=== PATIENT | female | born 1985 | race Caucasian/White ===

== ENCOUNTER 2022-02-14 17:12 | Emergency (ER) | payer OTHER ==
[~2022-02-14] VITALS: Ht 165.1 cm; Wt 65.9 kg
[~2022-02-14 17:12] MED LIST: INSULIN SQ; METF-446 PO; NPH,100I SQ; SITA25 PO
[2022-02-14] MEDS ORDERED: PB/HYOSCY/ATR/SCOP/LIDO/MAALOX 55 ML BOTTLE PO ONE (18:30)
[2022-02-14 18:39] LABS: EOSINOPHILS % (AUTO) 1.7 % (1.0-6.0); HEMATOCRIT 37.7 % (36-46); HEMOGLOBIN 12.8 g/dL (12.0-16.0); LYMPHOCYTES # (AUTO) 5.1 K/uL (1.0-4.8); LYMPHOCYTES % (AUTO) 39.8 % (22.0-44.0); MEAN CORPUSCULAR HEMOGLOBIN 27.5 pg (26.0-34.0); MEAN CORPUSCULAR HGB CONC 33.9 G/dL (31.0-37.0); MEAN CORPUSCULAR VOLUME 81 fL (80-100); MONOCYTES # (AUTO) 0.4 K/uL (0.1-1.0); MONOCYTES % (AUTO) 2.9 % (2.0-9.0); NEUTROPHILS % (AUTO) 54.6 % (40.0-70.0); PLATELET COUNT (AUTO) 396 K/uL (150-450); RED BLOOD CELL COUNT(AUTO) 4.65 MIL/uL (4.00-5.20)
[2022-02-14 19:06] LABS: ALANINE AMINOTRANSFERASE 18 U/L (12-78); ALBUMIN 2.9 g/dL (3.4-5.0); ALKALINE PHOSPHATASE 78 U/L (46-116); ASPARTATE AMINOTRANSFERASE 14 U/L (15-37); BILIRUBIN,TOTAL 0.3 mg/dL (0.1-1.0); CALCIUM, TOTAL 9.4 mg/dL (8.8-10.5); CARBON DIOXIDE 27 mmol/L (22-29); CREATININE 0.81 mg/dL (0.60-1.30); GLOMERULAR FILTR. RATE CALC > 60 mL/min (>60); GLUCOSE,RANDOM 279 mg/dL (70-110); HCG,QUANTITATIVE < 1 mIU/mL (0-6); LIPASE 144 U/L (73-393); TOTAL PROTEIN, SERUM 8.1 g/dL (6.4-8.2); UREA NITROGEN, BLOOD 14 mg/dL (7-18)
[2022-02-14 19:13] LABS: ANION GAP 11 mmol/L (8-16); CHLORIDE 98 mmol/L (98-107); POTASSIUM 4.1 mmol/L (3.5-5.1); SODIUM SERUM 136 mmol/L (136-145)
[2022-02-14 19:26] VITALS: BP 161/106
== END 2022-02-14 20:12 | disposition home or self-care (01) ==
LOC: EMS 17:15
DX: E11.65 Type 2 diabetes mellitus with hyperglycemia (principal); R10.13 Epigastric pain; I10 Essential (primary) hypertension; E78.00 Pure hypercholesterolemia, unspecified
CPT/HCPCS: 80053; 82962; 83690; 84484; 84702; 85025; 93005; 99284

== ENCOUNTER 2022-08-10 13:43 | Emergency (ER) | payer OTHER ==
[~2022-08-10] VITALS: Ht 165.1 cm; Wt 65.9 kg
[2022-08-10] MEDS ORDERED: SODIUM CHLORIDE 0.9% 1,000 ML IV ONE (14:30)
[2022-08-10 14:45] LABS: BASOPHILS % (AUTO) 0.2 % (0.0-2.0); EOSINOPHILS % (AUTO) 0.7 % (1.0-6.0); HEMOGLOBIN 13.7 g/dL (12.0-16.0); LYMPHOCYTES # (AUTO) 0.9 K/uL (1.0-4.8); MEAN CORPUSCULAR HEMOGLOBIN 26.8 pg (26.0-34.0); MEAN CORPUSCULAR HGB CONC 32.6 G/dL (31.0-37.0); MEAN CORPUSCULAR VOLUME 82 fL (80-100); MONOCYTES # (AUTO) 0.3 K/uL (0.1-1.0); MONOCYTES % (AUTO) 2.4 % (2.0-9.0); NEUTROPHILS # (AUTO) 11.7 K/uL (1.8-7.7); NEUTROPHILS % (AUTO) 89.7 % (40.0-70.0); PLATELET COUNT (AUTO) 349 K/uL (150-450); RED BLOOD CELL COUNT(AUTO) 5.12 MIL/uL (4.00-5.20); RED CELL DISTRIBUTION WIDTH 13.9 % (11.5-14.5)
[2022-08-10 14:53] LABS: ANION GAP 6 mmol/L (8-16); CALCIUM, TOTAL 8.7 mg/dL (8.8-10.5); CARBON DIOXIDE 26 mmol/L (22-29); CHLORIDE 100 mmol/L (98-107); CREATININE 1.06 mg/dL (0.60-1.30); GLOMERULAR FILTR. RATE CALC 59 mL/min (>60); GLUCOSE,RANDOM 289 mg/dL (70-110); SODIUM SERUM 132 mmol/L (136-145); UREA NITROGEN, BLOOD 25 mg/dL (7-18)
[2022-08-10 15:05] LABS: ALANINE AMINOTRANSFERASE 13 U/L (12-78); ALBUMIN 2.5 g/dL (3.4-5.0); ALKALINE PHOSPHATASE 64 U/L (46-116); ASPARTATE AMINOTRANSFERASE 16 U/L (15-37); BILIRUBIN,TOTAL 0.4 mg/dL (0.1-1.0); HCG,QUANTITATIVE < 1 mIU/mL (0-6); LIPASE 218 U/L (73-393); TOTAL PROTEIN, SERUM 7.2 g/dL (6.4-8.2)
[2022-08-10] MEDS ORDERED: KETOROLAC TROMETHAMINE 10 MG TABLET PO ONE (15:45)
[2022-08-10] MEDS ORDERED: METOCLOPRAMIDE HCL 5 MG/ML 2 ML VIAL IVP ONE (15:45)
[2022-08-10] MEDS ORDERED: PB/HYOSCY/ATR/SCOP/LIDO/MAALOX 55 ML BOTTLE PO ONE (15:45)
[2022-08-10 16:14] LABS: APPEARANCE,URINE HAZY (CLEAR); BILIRUBIN,URINE NEGATIVE (NEGATIVE); GLUCOSE, URINE (UA) >=1000 mg/dL (NEGATIVE); KETONES,URINE NEGATIVE (NEGATIVE); LEUKOCYTE ESTERASE ,URINE NEGATIVE (NEGATIVE); NITRATE,URINE NEGATIVE (NEGATIVE); OCCULT BLOOD,URINE MODERATE (NEGATIVE); PH,URINE 6.5 (5.0-8.0); PROTEIN,URINE 300-600,SEE CONFIRM mg/dL (NEGATIVE); SPECIFIC GRAVITIY, URINE 1.016 (1.003-1.030); UROBILINOGEN,URINE <=1.0 mg/dL (<=1.0)
[2022-08-10 16:26] LABS: BACTERIA,URINE Few /HPF (None Seen); SQUAMOUS EPITHELIAL CELL,UR Few /LPF (None Seen); SULFOSALICYLIC ACID,URINE 4+ (Negative); TRANSITIONAL EPI CELLS,URINE None Seen /LPF (None Seen); WBC,URINE 0-2 /HPF (0-5)
[2022-08-10 17:45] VITALS: BP 160/83
[2022-08-10] MEDS ORDERED: ONDA-104 PO (18:29)
[2022-08-10] MEDS ORDERED: OMEP20CA13 PO (18:29)
== END 2022-08-10 18:40 | disposition home or self-care (01) ==
LOC: EMS 13:47
DX: R10.13 Epigastric pain (principal); E11.9 Type 2 diabetes mellitus without complications; I10 Essential (primary) hypertension; E78.00 Pure hypercholesterolemia, unspecified; K76.0 Fatty (change of) liver, not elsewhere classified; Z98.51 Tubal ligation status; Z98.890 Other specified postprocedural states
CPT/HCPCS: 99285; 74176; 96374; 96361; 80053; 81001; 82962; 83690; 84702; 85025; 36415; J2765; 81002

== ENCOUNTER 2024-10-06 06:28 | Emergency (ER) | payer OTHER ==
[~2024-10-06] VITALS: Ht 157.5 cm; Wt 65.9 kg
[~2024-10-06 06:28] MED LIST changes: -INSULIN SQ; -METF-446 PO; -NPH,100I SQ; +OMEP20CA13 PO; +ONDA-104 PO; -SITA25 PO
[2024-10-06 06:29] VITALS: TEMP 98.7
[2024-10-06] MEDS: OxyCODONE HCL/ACETAMINOPHEN 5-325 MG TABLET PO ONE (06:46)
[2024-10-06] MEDS: CloNIDine HCL 0.1 MG TABLET PO ONE (06:47)
[2024-10-06] MEDS: LISINOPRIL 10 MG TABLET PO ONE (06:47)
[2024-10-06] MEDS: DORZOLAMIDE/TIMOLOL 2-0.5% [22.3-6.8MG/ML] 10 ML OPHTHALMIC SOLUTION OD ONE (08:19)
[2024-10-06] MEDS: AcetaZOLAMIDE 250 MG TABLET PO ONE (08:19)
[2024-10-06 08:37] VITALS: BP 109/66; PULSE 84; RESP 18; O2SAT 99
== END 2024-10-06 08:48 | disposition home or self-care (01) ==
LOC: EMS 06:36
DX: H40.211 Acute angle-closure glaucoma, right eye (principal); E11.9 Type 2 diabetes mellitus without complications; I10 Essential (primary) hypertension; E78.00 Pure hypercholesterolemia, unspecified; K76.0 Fatty (change of) liver, not elsewhere classified; Z98.51 Tubal ligation status; Z79.899 Other long term (current) drug therapy
CPT/HCPCS: 82962; 99284; Z7502; Z7610

== ENCOUNTER 2025-03-18 18:28 | Inpatient (IN) | payer OTHER ==
[~2025-03-18] VITALS: Ht 157.5 cm; Wt 68.7 kg
[~2025-03-18 18:28] MED LIST changes: +AMLO-258 PO; +ASPI-1450 PO; +ATOR40TA71 PO; +ATRO2DRO7 OD; +FOLI0.8T54 PO; +LABE200T56 PO; -OMEP20CA13 PO; -ONDA-104 PO; +PRED5DRO25 OD; +TRAV2.5D7 OD
[2025-03-18] MEDS: SODIUM BICARBONATE [ADULT] 8.4% 50 MEQ/50 ML SYRINGE IVP ONE ×2 (18:56)
[2025-03-18] MEDS: ATROPINE SULFATE 1 MG/ML VIAL IVP ONE (18:57)
[2025-03-18] MEDS: CALCIUM CHLORIDE 100 MG/ML 10 ML VIAL IVP ONE (18:57)
[2025-03-18 18:58] LABS: PLATELET COUNT (AUTO) 298 K/uL (150-450); RED BLOOD CELL COUNT(AUTO) 3.38 MIL/uL (4.00-5.20); RED CELL DISTRIBUTION WIDTH 13.4 % (11.5-14.5); WHITE BLOOD COUNT (AUTO) 16.6 K/uL (4.5-11.0)
[2025-03-18] MEDS: SODIUM CHLORIDE 0.9% 1,000 ML IV ONE (19:00)
[2025-03-18 19:04] LABS: CREATININE 9.46 mg/dL (0.60-1.30); GLOMERULAR FILTR. RATE CALC 5 mL/min (>60); GLUCOSE,RANDOM 176 mg/dL (70-110); SODIUM SERUM 131 mmol/L (136-145); UREA NITROGEN, BLOOD 94 mg/dL (7-18)
[2025-03-18] MEDS: NITROGLYCERIN 2% (1 GM=INCH) OINTMENT PACKET TP ONE ×2 (19:05→19:12)
[2025-03-18 19:09] LABS: ASPARTATE AMINOTRANSFERASE 34.0 U/L (15-37); CREATINE KINASE, TOTAL ONLY 600.0 U/L (26-192); TOTAL PROTEIN, SERUM 6.2 g/dL (6.4-8.2)
[2025-03-18 19:14] LABS: CALCIUM, TOTAL 15.3 mg/dL (8.8-10.5)
[2025-03-18] MEDS ORDERED: CALCIUM CHLORIDE 100 MG/ML 10 ML SYRINGE IVP ONE (19:15)
[2025-03-18] MEDS ORDERED: ATROPINE SULFATE 0.1 MG/ML 10 ML SYRINGE IVP ONE (19:15)
[2025-03-18] MEDS: DEXTROSE 50%-WATER 25 GM/50 ML SYRINGE IVP ONE (19:19)
[2025-03-18] MEDS: INSULIN REGULAR, HUMAN 100 UNITS/ML IVP ONE (19:20)
[2025-03-18] MEDS: SODIUM ZIRCONIUM CYCLOSILICATE 10 GM POWDER PACKET PO ONE (19:20)
[2025-03-18 19:21] LABS: TROPONIN I-HIGH SENSITIVITY 245 ng/L (<51)
[2025-03-18 19:36] LABS: GLUCOMETER DEV NAME(LOC) ERT.7; GLUCOSE,POINT OF CARE 153 MG/DL (70-110)
[2025-03-18] MEDS: FUROSEMIDE 20 MG/2 ML VIAL IVP ONE (19:58)
[2025-03-18 19:59] LABS: ABG BASE EXCESS -6.6 mmol/L (-2.0-3.0); ABG CARBOXYHEMOGLOBIN 0.3 % (0.5-1.5); ABG HCO3 19.7 mmol/L (21.0-28.0); ABG METHEMOGLOBIN 1.0 % (0.0-1.5); ABG OXYGEN CONTENT 12.9 mL/dL (15.0-23.0); ABG OXYGEN SATURATION 90.7 % (94.0-98.0); ABG OXYHEMOGLOBIN 89.5 % (94.0-98.0); ABG PCO2 27 mmHg (32.0-45.0); ABG PH 7.431 (7.350-7.450); ABG TOTAL HEMOGLOBIN 10.2 G/dL (12.0-16.0); FRACTIONATED INSPIRED OXYGEN 21.0 % (21-100.0); PO2, ARTERIAL BG 56.8 mmHg (83.0-108.0); SOURCE, BLOOD GAS ARTERIAL; TEMPERATURE, FAHRENHEIT, BG 97.0 FAHREN (96.0-98.6)
[2025-03-18 20:00] LABS: ABG A-A DIFF O2 60.9 mmHg (10-20.0); ALLEN TEST, BLOOD GAS Positive; O2 DEVICE,BLOOD GAS ROOM AIR (ROOM AIR); SITE, BLOOD GAS RT RADIAL
[2025-03-18] MEDS: METOCLOPRAMIDE HCL 5 MG/ML 2 ML VIAL IVP ONE (20:14)
[2025-03-18 20:26] LABS: APPEARANCE,URINE CLEAR (CLEAR); GLUCOSE, URINE (UA) 300-500 mg/dL (NEGATIVE); LEUKOCYTE ESTERASE ,URINE NEGATIVE (NEGATIVE); NITRATE,URINE NEGATIVE (NEGATIVE); OCCULT BLOOD,URINE SMALL (NEGATIVE); SPECIFIC GRAVITIY, URINE 1.014 (1.003-1.030)
[2025-03-18 20:45] LABS: SULFOSALICYLIC ACID,URINE 4+ (Negative)
[2025-03-18 20:47] LABS: SQUAMOUS EPITHELIAL CELL,UR Rare /LPF (None Seen)
[2025-03-18 20:49] LABS: HYALINE CASTS, URINE 0-2 /LPF (None Seen)
[2025-03-18] MEDS: ATORVASTATIN CALCIUM 40 MG TABLET PO SCH (23:09)
[2025-03-19] VITALS (7 sets, daily range): BP systolic 134–157; BP diastolic 62–81; PULSE 91–101; RESP 12–25; TEMP 97–97.5; O2SAT 92–100
[2025-03-19] MEDS: ETHYL ALCOHOL 62% ANTISEPTIC NASAL SANITIZER 0.6 ML AMPUL NASAL SCH (00:31)
[2025-03-19 01:17] LABS: TROPONIN I-HIGH SENSITIVITY 330 ng/L (<51)
[2025-03-19 01:51] LABS: GLUCOMETER DEV NAME(LOC) ICU.S6; GLUCOSE,POINT OF CARE 123 MG/DL (70-110)
[2025-03-19 06:12] LABS: PLATELET COUNT (AUTO) 307 K/uL (150-450); RED BLOOD CELL COUNT(AUTO) 3.20 MIL/uL (4.00-5.20); RED CELL DISTRIBUTION WIDTH 13.7 % (11.5-14.5); WHITE BLOOD COUNT (AUTO) 15.2 K/uL (4.5-11.0)
[2025-03-19 06:18] LABS: CALCIUM, TOTAL 8.3 mg/dL (8.8-10.5); CREATININE 9.08 mg/dL (0.60-1.30); GLOMERULAR FILTR. RATE CALC 5.0 mL/min (>60); GLUCOSE,RANDOM 150.0 mg/dL (70-110); SODIUM SERUM 134.0 mmol/L (136-145); UREA NITROGEN, BLOOD 93.0 mg/dL (7-18)
[2025-03-19 06:23] LABS: PHOSPHORUS 8.2 mg/dL (2.5-4.9)
[2025-03-19] MEDS ORDERED: DEXTROSE 50%-WATER 25 GM/50 ML SYRINGE IVP PRN (07:30)
[2025-03-19] MEDS ORDERED: ACETAMINOPHEN 325 MG TABLET PO PRN (08:30)
[2025-03-19] MEDS ORDERED: BISACODYL 10 MG RECTAL RECTAL SUPPOSITORY PR PRN (08:30)
[2025-03-19] MEDS ORDERED: IPRATROPIUM BROMIDE 0.5 MG/2.5 ML NEB SOLUTION NEB PRN (08:30)
[2025-03-19] MEDS ORDERED: ALBUTEROL SULFATE 2.5 MG/0.5 ML NEB SOLUTION NEB PRN (08:30)
[2025-03-19] MEDS ORDERED: MAGNESIUM HYDROXIDE SUSPENSION 30 ML UDCUP PO PRN (08:30)
[2025-03-19] MEDS ORDERED: HYDROCODONE/ACETAMINOPHEN 5-325 MG TABLET PO PRN (08:30)
[2025-03-19] MEDS ORDERED: ZOLPIDEM TARTRATE 5 MG TABLET PO PRN (08:30)
[2025-03-19] MEDS: FOLIC ACID/VIT B COMPLEX AND C TABLET PO SCH (08:56)
[2025-03-19] MEDS: PrednisoLONE ACETATE 1% 5 ML OPHTHALMIC SUSPENSION OD SCH (08:57)
[2025-03-19] MEDS: ASPIRIN 81 MG CHEWABLE TABLET PO SCH (08:57)
[2025-03-19] MEDS: TRAVOPROST-Z 0.004% 2.5 ML OPHTHALMIC SOLUTION OD SCH (08:57)
[2025-03-19] MEDS: ATROPINE SULFATE 1% 5 ML OPHTHALMIC SOLUTION OD SCH (08:57)
[2025-03-19] MEDS ORDERED: ETHYL ALCOHOL 62% ANTISEPTIC NASAL SANITIZER 0.6 ML AMPUL NASAL SCH (09:00)
[2025-03-19] MEDS: PANTOPRAZOLE SODIUM 40 MG DR TABLET PO SCH (09:05)
[2025-03-19] MEDS: INSULIN LISPRO 100 UNITS/ML SQ PRN (09:27)
[2025-03-19 09:36] LABS: GLUCOMETER DEV NAME(LOC) ICU.S6; GLUCOSE,POINT OF CARE 147 MG/DL (70-110)
[2025-03-19] MEDS: CALCIUM ACETATE 667 MG CAPSULE PO SCH (11:53)
[2025-03-19] MEDS: ONDANSETRON HCL 4 MG/2 ML VIAL IVP PRN (12:15)
[2025-03-19] MEDS: GENTAMICIN SULFATE 0.3% OPHTHALMIC SOLUTION 5 ML TP SCH (12:16)
[2025-03-19 13:21] LABS: GLUCOMETER DEV NAME(LOC) ICU.S6; GLUCOSE,POINT OF CARE 144 MG/DL (70-110)
[2025-03-19] MEDS: EPOETIN ALFA 10,000 UNITS/ML VIAL SQ SCH (14:05)
[2025-03-19] MEDS: HEPARIN SODIUM,PORCINE 5,000 UNITS/ML VIAL SQ SCH (15:32)
[2025-03-19 18:10] LABS: GLUCOMETER DEV NAME(LOC) ICU.S6; GLUCOSE,POINT OF CARE 130 MG/DL (70-110)
[2025-03-19] MEDS: NIFEdipine 60 MG ER TABLET PO SCH (20:11)
[2025-03-19 21:11] LABS: SPECIMENTYPE,BODY FLUID PERITV
[2025-03-19 22:25] LABS: APPEARANCE,SPUN,BODY FLUID CLEAR (CLEAR); APPEARANCE,UNSPUN,BODY FLUID CLEAR (CLEAR); COLOR,BODY FLUID COLORLESS (LT YELLOW)
[2025-03-19 22:26] LABS: TOTAL VOLUME,BODY FLUID 29 mL
[2025-03-19 22:27] LABS: BODY FLUID RBC 1.0 /cu. mm.; WBC, BODY FLUID 1 /cu. mm.
[2025-03-19 22:42] LABS: BASOPHILS,BODY FLUID 0 %; EOSINOPHILS,BF (ANAL) 0 %; LYMPHOCYTES,BODY FLUID 20 %; MONOCYTES,BODY FLUID 40 %; NEUTROPHILS,BODY FLUID 40 %
[2025-03-20] VITALS (8 sets, daily range): BP systolic 119–159; BP diastolic 68–82; PULSE 90–99; RESP 14–27; TEMP 97.3–98.2; O2SAT 92–100
[2025-03-20 05:20] LABS: PLATELET COUNT (AUTO) 304 K/uL (150-450); RED BLOOD CELL COUNT(AUTO) 2.86 MIL/uL (4.00-5.20); RED CELL DISTRIBUTION WIDTH 13.9 % (11.5-14.5); WHITE BLOOD COUNT (AUTO) 12.4 K/uL (4.5-11.0)
[2025-03-20 05:31] LABS: CALCIUM, TOTAL 8.0 mg/dL (8.8-10.5); CREATININE 8.09 mg/dL (0.60-1.30); GLOMERULAR FILTR. RATE CALC 6.0 mL/min (>60); GLUCOSE,RANDOM 167.0 mg/dL (70-110); SODIUM SERUM 133.0 mmol/L (136-145); UREA NITROGEN, BLOOD 72.0 mg/dL (7-18)
[2025-03-20 05:41] LABS: GLUCOMETER DEV NAME(LOC) ICUN.5; GLUCOSE,POINT OF CARE 141 MG/DL (70-110)
[2025-03-20 19:01] LABS: GLUCOMETER DEV NAME(LOC) ICU.S6; GLUCOSE,POINT OF CARE 106 MG/DL (70-110)
[2025-03-20] MEDS: MORPHINE SULFATE 2 MG/ML SYRINGE IVP PRN (20:53)
[2025-03-21 00:17] VITALS: BP 132/71; PULSE 99; RESP 19; TEMP 98.2; O2SAT 94
[2025-03-21 04:14] VITALS: BP 128/69; PULSE 92; RESP 19; TEMP 98.2; O2SAT 93
[2025-03-21 08:00] VITALS: BP 145/69; PULSE 96; RESP 18; TEMP 98.6; O2SAT 96
[2025-03-21 10:27] LABS: GLUCOMETER DEV NAME(LOC) 5N.1D; GLUCOSE,POINT OF CARE 117 MG/DL (70-110)
[2025-03-21 10:27] LABS: GLUCOMETER DEV NAME(LOC) 5N.1D; GLUCOSE,POINT OF CARE 114 MG/DL (70-110)
[2025-03-21 10:27] LABS: GLUCOMETER DEV NAME(LOC) 5S.2D; GLUCOSE,POINT OF CARE 88 MG/DL (70-110)
[2025-03-21 11:57] VITALS: BP 139/67; PULSE 90; RESP 19; TEMP 98.4; O2SAT 99
[2025-03-21 14:31] LABS: GLUCOMETER DEV NAME(LOC) 5S.2D; GLUCOSE,POINT OF CARE 85 MG/DL (70-110)
== END 2025-03-21 14:50 | disposition home or self-care (01) | DRG 425 ==
LOC: EMS 18:29 → EDH 22:55 → ICU 23:50 → 5S 03-20 15:00
PROVIDERS: ADMIT Hospitalist; ATTEND Hospitalist
PROC: 3E1M39Z Irrigation of Peritoneal Cavity using Dialysate, Percutaneous Approach (ICD-10-PCS; principal; 2025-03-19)
PROC: 3E1M39Z Irrigation of Peritoneal Cavity using Dialysate, Percutaneous Approach (ICD-10-PCS; 2025-03-20)
DX: E87.5 Hyperkalemia (principal); I44.2 Atrioventricular block, complete; I12.0 Hypertensive chronic kidney disease with stage 5 chronic kidney disease or end stage renal disease; D63.1 Anemia in chronic kidney disease; E11.319 Type 2 diabetes mellitus with unspecified diabetic retinopathy without macular edema; E83.39 Other disorders of phosphorus metabolism; N18.6 End stage renal disease; E11.22 Type 2 diabetes mellitus with diabetic chronic kidney disease; D72.829 Elevated white blood cell count, unspecified; E78.00 Pure hypercholesterolemia, unspecified; E11.40 Type 2 diabetes mellitus with diabetic neuropathy, unspecified; R79.89 Other specified abnormal findings of blood chemistry; R56.9 Unspecified convulsions; Z99.2 Dependence on renal dialysis; Z79.899 Other long term (current) drug therapy; Z79.82 Long term (current) use of aspirin; Z79.4 Long term (current) use of insulin
CPT/HCPCS: 71045; 80048; 80076; 81001; 81002; 82550; 82805; 82962; 83735; 83880; 84100; 84132; 84484; 84703; 85025; 85610; 85730; 87075; 87081; 87205; 89051; 90945; 93005; 93306; 97162; 99285; G0378; J0360; J0461; J0885; J1644; J1815; J1940; J2270; J2405; J2765; J3490; J7050; 36415-L1; 36415-TC; 87070

== ENCOUNTER 2025-03-24 21:01 | Inpatient (IN) | payer OTHER ==
[~2025-03-24] VITALS: Ht 165.1 cm; Wt 63.5 kg
[2025-03-24 21:28] LABS: PLATELET COUNT (AUTO) 409 K/uL (150-450); RED BLOOD CELL COUNT(AUTO) 3.25 MIL/uL (4.00-5.20); RED CELL DISTRIBUTION WIDTH 13.8 % (11.5-14.5); WHITE BLOOD COUNT (AUTO) 12.3 K/uL (4.5-11.0)
[2025-03-24] MEDS: DEXTROSE 50%-WATER 25 GM/50 ML SYRINGE IVP ONE (21:37)
[2025-03-24 21:38] LABS: ASPARTATE AMINOTRANSFERASE 36.0 U/L (15-37); TOTAL PROTEIN, SERUM 6.2 g/dL (6.4-8.2)
[2025-03-24] MEDS: INSULIN REGULAR, HUMAN 100 UNITS/ML IVP ONE (21:39)
[2025-03-24 21:46] LABS: RBC MORPHOLOGY COMMENT NORMAL RBC MORPH
[2025-03-24 21:48] LABS: CALCIUM, TOTAL 8.5 mg/dL (8.8-10.5); CREATININE 8.92 mg/dL (0.60-1.30); GLOMERULAR FILTR. RATE CALC 5 mL/min (>60); GLUCOSE,RANDOM 120 mg/dL (70-110); SODIUM SERUM 127 mmol/L (136-145); UREA NITROGEN, BLOOD 72 mg/dL (7-18)
[2025-03-24] MEDS: CHLORHEXIDINE GLUCONATE 2% TOWELETTE [2'S/6'S] TP SCH (22:00)
[2025-03-24 22:11] LABS: TROPONIN I-HIGH SENSITIVITY 538 ng/L (<51)
[2025-03-24] MEDS: ONDANSETRON HCL 4 MG/2 ML VIAL IVP ONE (22:17)
[2025-03-24 22:20] LABS: GLUCOMETER DEV NAME(LOC) ERT.7; GLUCOSE,POINT OF CARE 151 MG/DL (70-110)
[2025-03-24] MEDS: SODIUM ZIRCONIUM CYCLOSILICATE 10 GM POWDER PACKET PO ONE (22:48)
[2025-03-24] MEDS ORDERED: 0.9% SODIUM CHLORIDE 15 ML NEB SOLUTION NEB ONE (22:50)
[2025-03-24 22:56] LABS: APPEARANCE,URINE CLEAR (CLEAR); GLUCOSE, URINE (UA) 300-500 mg/dL (NEGATIVE); LEUKOCYTE ESTERASE ,URINE NEGATIVE (NEGATIVE); NITRATE,URINE NEGATIVE (NEGATIVE); OCCULT BLOOD,URINE SMALL (NEGATIVE); SPECIFIC GRAVITIY, URINE 1.013 (1.003-1.030)
[2025-03-24] MEDS: ALBUTEROL SULFATE 2.5 MG/0.5 ML 5 ML NEB SOLUTION NEB ONE (22:56)
[2025-03-24 23:00] VITALS: PULSE 116; RESP 20; O2SAT 95
[2025-03-24 23:09] LABS: SULFOSALICYLIC ACID,URINE 4+ (Negative)
[2025-03-24 23:10] LABS: SQUAMOUS EPITHELIAL CELL,UR Few /LPF (None Seen)
[2025-03-24] MEDS ORDERED: DEXTROSE 50%-WATER 25 GM/50 ML SYRINGE IVP PRN (23:30)
[2025-03-25] VITALS (9 sets, daily range): BP systolic 140–186; BP diastolic 65–98; PULSE 86–122; RESP 12–20; TEMP 97.8–98.7; O2SAT 94–100
[2025-03-25 00:08] LABS: TROPONIN I-HIGH SENSITIVITY 594 ng/L (<51)
[2025-03-25] MEDS: HEPARIN SODIUM,PORCINE 5,000 UNITS/ML VIAL SQ SCH (00:17)
[2025-03-25] MEDS: ACETAMINOPHEN 325 MG TABLET PO PRN (01:50)
[2025-03-25 06:21] LABS: GLUCOMETER DEV NAME(LOC) ERT.7; GLUCOSE,POINT OF CARE 100 MG/DL (70-110)
[2025-03-25] MEDS: ETHYL ALCOHOL 62% ANTISEPTIC NASAL SANITIZER 0.6 ML AMPUL NASAL SCH (08:27)
[2025-03-25] MEDS: FAMOTIDINE 20 MG TABLET PO SCH (08:28)
[2025-03-25] MEDS: DOCUSATE SODIUM 100 MG CAPSULE PO SCH (08:28)
[2025-03-25 11:35] LABS: GLUCOMETER DEV NAME(LOC) ICU.S6; GLUCOSE,POINT OF CARE 88 MG/DL (70-110)
[2025-03-25 16:30] LABS: GLUCOMETER DEV NAME(LOC) ICU.S6; GLUCOSE,POINT OF CARE 99 MG/DL (70-110)
[2025-03-25] MEDS ORDERED: [UNRECOGNIZED DRUG - OTHER] IV ONE (16:57)
[2025-03-25] MEDS ORDERED: DOPAMINE IV ONE (16:57)
[2025-03-25 17:40] LABS: PLATELET COUNT (AUTO) 387 K/uL (150-450); RED BLOOD CELL COUNT(AUTO) 3.22 MIL/uL (4.00-5.20); RED CELL DISTRIBUTION WIDTH 13.5 % (11.5-14.5); WHITE BLOOD COUNT (AUTO) 12.1 K/uL (4.5-11.0)
[2025-03-25 17:54] LABS: CALCIUM, TOTAL 7.6 mg/dL (8.8-10.5); CREATININE 9.79 mg/dL (0.60-1.30); GLOMERULAR FILTR. RATE CALC 4.0 mL/min (>60); GLUCOSE,RANDOM 110.0 mg/dL (70-110); SODIUM SERUM 126.0 mmol/L (136-145); UREA NITROGEN, BLOOD 79.0 mg/dL (7-18)
[2025-03-25 17:59] LABS: ASPARTATE AMINOTRANSFERASE 25.0 U/L (15-37); PHOSPHORUS 7.4 mg/dL (2.5-4.9); TOTAL PROTEIN, SERUM 5.7 g/dL (6.4-8.2)
[2025-03-25 18:06] LABS: TROPONIN I-HIGH SENSITIVITY 484 ng/L (<51)
[2025-03-25] MEDS ORDERED: 0.9% SODIUM CHLORIDE 5 ML NEB SOLUTION NEB ONE (20:09)
[2025-03-25] MEDS: ALBUTEROL SULFATE 2.5 MG/0.5 ML 5 ML NEB SOLUTION NEB ONE (20:17)
[2025-03-25] MEDS: DEXTROSE 50%-WATER 25 GM/50 ML SYRINGE IVP ONE (20:27)
[2025-03-25] MEDS: SODIUM ZIRCONIUM CYCLOSILICATE 10 GM POWDER PACKET PO ONE (20:27)
[2025-03-25] MEDS: CALCIUM GLUCONATE 100 MG/ML 10 ML IVP ONE (20:29)
[2025-03-25] MEDS: INSULIN REGULAR, HUMAN 100 UNITS/ML IVP ONE (20:29)
[2025-03-25 20:40] LABS: GLUCOMETER DEV NAME(LOC) ICU.S6; GLUCOSE,POINT OF CARE 134 MG/DL (70-110)
[2025-03-25 23:09] LABS: CALCIUM, TOTAL 7.9 mg/dL (8.8-10.5); CREATININE 9.76 mg/dL (0.60-1.30); GLOMERULAR FILTR. RATE CALC 5.0 mL/min (>60); GLUCOSE,RANDOM 221.0 mg/dL (70-110); SODIUM SERUM 126.0 mmol/L (136-145); UREA NITROGEN, BLOOD 76.0 mg/dL (7-18)
[2025-03-26] VITALS (7 sets, daily range): BP systolic 117–165; BP diastolic 59–88; PULSE 73–107; RESP 12–21; TEMP 97.6–99.3; O2SAT 95–100
[2025-03-26 05:52] LABS: PLATELET COUNT (AUTO) 339 K/uL (150-450); RED BLOOD CELL COUNT(AUTO) 2.76 MIL/uL (4.00-5.20); RED CELL DISTRIBUTION WIDTH 13.7 % (11.5-14.5); WHITE BLOOD COUNT (AUTO) 11.2 K/uL (4.5-11.0)
[2025-03-26 06:02] LABS: CALCIUM, TOTAL 7.7 mg/dL (8.8-10.5); CREATININE 9.18 mg/dL (0.60-1.30); GLOMERULAR FILTR. RATE CALC 5.0 mL/min (>60); GLUCOSE,RANDOM 105.0 mg/dL (70-110); SODIUM SERUM 128.0 mmol/L (136-145); UREA NITROGEN, BLOOD 70.0 mg/dL (7-18)
[2025-03-26 06:06] LABS: PHOSPHORUS 6.9 mg/dL (2.5-4.9)
[2025-03-26 06:35] LABS: GLUCOMETER DEV NAME(LOC) ICUN.6; GLUCOSE,POINT OF CARE 133 MG/DL (70-110)
[2025-03-26] MEDS: SODIUM ZIRCONIUM CYCLOSILICATE 10 GM POWDER PACKET PO SCH (13:18)
[2025-03-26] MEDS: INSULIN LISPRO 100 UNITS/ML SQ PRN (17:12)
[2025-03-26 17:21] LABS: GLUCOMETER DEV NAME(LOC) ICUN.6; GLUCOSE,POINT OF CARE 147 MG/DL (70-110)
[2025-03-26 17:21] LABS: GLUCOMETER DEV NAME(LOC) ICU.S6; GLUCOSE,POINT OF CARE 120 MG/DL (70-110)
[2025-03-26 21:51] LABS: GLUCOMETER DEV NAME(LOC) ICUN.6; GLUCOSE,POINT OF CARE 146 MG/DL (70-110)
[2025-03-27] VITALS: BP 163/87; PULSE 98; RESP 13; TEMP 98.9; O2SAT 98
[2025-03-27 04:00] VITALS: BP 126/68; PULSE 93; RESP 13; TEMP 97.9; O2SAT 97
[2025-03-27 05:51] LABS: PLATELET COUNT (AUTO) 323 K/uL (150-450); RED BLOOD CELL COUNT(AUTO) 2.87 MIL/uL (4.00-5.20); RED CELL DISTRIBUTION WIDTH 13.8 % (11.5-14.5); WHITE BLOOD COUNT (AUTO) 10.5 K/uL (4.5-11.0)
[2025-03-27 05:52] LABS: CALCIUM, TOTAL 7.4 mg/dL (8.8-10.5); CREATININE 8.47 mg/dL (0.60-1.30); GLOMERULAR FILTR. RATE CALC 5.0 mL/min (>60); GLUCOSE,RANDOM 87.0 mg/dL (70-110); SODIUM SERUM 127.0 mmol/L (136-145); UREA NITROGEN, BLOOD 63.0 mg/dL (7-18)
[2025-03-27 06:36] LABS: GLUCOMETER DEV NAME(LOC) ICUN.6; GLUCOSE,POINT OF CARE 94 MG/DL (70-110)
[2025-03-27 08:00] VITALS: BP 150/87; PULSE 91; RESP 12; TEMP 98.2; O2SAT 95
[2025-03-27] MEDS ORDERED: SODI10PO3 PO (09:42)
[2025-03-27] MEDS ORDERED: HYDR50TA37 PO (09:42)
[2025-03-27] MEDS: ONDANSETRON HCL 4 MG/2 ML VIAL IVP PRN (10:54)
[2025-03-27 10:56] LABS: GLUCOMETER DEV NAME(LOC) ICUN.6; GLUCOSE,POINT OF CARE 92 MG/DL (70-110)
[2025-03-27] MEDS ORDERED: EPOETIN ALFA 10,000 UNITS/ML VIAL SQ ONE (11:45)
[2025-03-27 11:56] LABS: GLUCOMETER DEV NAME(LOC) ICU.S6; GLUCOSE,POINT OF CARE 88 MG/DL (70-110)
[2025-03-27] MEDS: EPOETIN ALFA 10,000 UNITS/ML VIAL SQ ONE (12:06)
== END 2025-03-27 12:15 | disposition home or self-care (01) | DRG 201 ==
LOC: EMS 21:01 → EDH 21:45 → ICU 03-25 06:50
PROVIDERS: ADMIT Internal Medicine; ATTEND Internal Medicine
PROC: 3E1M39Z Irrigation of Peritoneal Cavity using Dialysate, Percutaneous Approach (ICD-10-PCS; principal; 2025-03-25)
PROC: 3E1M39Z Irrigation of Peritoneal Cavity using Dialysate, Percutaneous Approach (ICD-10-PCS; 2025-03-26)
DX: I44.1 Atrioventricular block, second degree (principal); J96.01 Acute respiratory failure with hypoxia; I12.0 Hypertensive chronic kidney disease with stage 5 chronic kidney disease or end stage renal disease; E44.0 Moderate protein-calorie malnutrition; E87.1 Hypo-osmolality and hyponatremia; D63.1 Anemia in chronic kidney disease; N18.6 End stage renal disease; E11.22 Type 2 diabetes mellitus with diabetic chronic kidney disease; E87.5 Hyperkalemia; I16.1 Hypertensive emergency; E78.00 Pure hypercholesterolemia, unspecified; Z83.3 Family history of diabetes mellitus; Z99.2 Dependence on renal dialysis; Z79.82 Long term (current) use of aspirin; Z79.899 Other long term (current) drug therapy; Z68.23 Body mass index [BMI] 23.0-23.9, adult
CPT/HCPCS: 70450; 71045; 80048; 80053; 80076; 81001; 81002; 82962; 83735; 83880; 84100; 84132; 84484; 84703; 85025; 87081; 90945; 93005; 94640; 94644; 96374; 96375; 99291; G0378; J0360; J0610; J0885; J1265; J1644; J1815; J2405; 36415-L1; 36415-TC

== ENCOUNTER 2025-03-29 23:02 | Emergency (ER) | payer OTHER ==
[~2025-03-29] VITALS: Ht 165.1 cm; Wt 68.2 kg
[~2025-03-29 23:02] MED LIST changes: +HYDR50TA37 PO; -LABE200T56 PO; +SODI10PO3 PO
[2025-03-30 00:20] VITALS: TEMP 97.3
[2025-03-30] MEDS ORDERED: TRANEXAMIC ACID 1,000 MG/10 ML VIAL TP ONE (00:45)
[2025-03-30 00:46] LABS: PLATELET COUNT (AUTO) 332 K/uL (150-450); RED BLOOD CELL COUNT(AUTO) 2.87 MIL/uL (4.00-5.20); RED CELL DISTRIBUTION WIDTH 14.0 % (11.5-14.5); WHITE BLOOD COUNT (AUTO) 11.4 K/uL (4.5-11.0)
[2025-03-30 00:51] LABS: CALCIUM, TOTAL 6.8 mg/dL (8.8-10.5); CREATININE 9.12 mg/dL (0.60-1.30); GLOMERULAR FILTR. RATE CALC 5 mL/min (>60); GLUCOSE,RANDOM 110 mg/dL (70-110); SODIUM SERUM 128 mmol/L (136-145); UREA NITROGEN, BLOOD 69 mg/dL (7-18)
[2025-03-30 01:02] LABS: TROPONIN I-HIGH SENSITIVITY 245 ng/L (<51)
[2025-03-30 01:45] VITALS: BP 175/78; PULSE 78; RESP 16; O2SAT 97
== END 2025-03-30 02:55 | disposition home or self-care (01) ==
LOC: EMS 23:41
DX: R04.0 Epistaxis (principal); I12.0 Hypertensive chronic kidney disease with stage 5 chronic kidney disease or end stage renal disease; E11.22 Type 2 diabetes mellitus with diabetic chronic kidney disease; N18.6 End stage renal disease; R06.02 Shortness of breath; E78.00 Pure hypercholesterolemia, unspecified; K76.0 Fatty (change of) liver, not elsewhere classified; Z79.82 Long term (current) use of aspirin; Z98.51 Tubal ligation status; Z79.899 Other long term (current) drug therapy
CPT/HCPCS: 80048; 83880; 84484; 85025; 93005; 99284

== ENCOUNTER 2025-04-18 22:31 | Inpatient (IN) | payer OTHER ==
[~2025-04-18] VITALS: Ht 165.1 cm; Wt 69.5 kg
[2025-04-18 23:00] LABS: PLATELET COUNT (AUTO) 261 K/uL (150-450); RED BLOOD CELL COUNT(AUTO) 3.08 MIL/uL (4.00-5.20); RED CELL DISTRIBUTION WIDTH 14.0 % (11.5-14.5); WHITE BLOOD COUNT (AUTO) 6.9 K/uL (4.5-11.0)
[2025-04-18 23:07] LABS: CALCIUM, TOTAL 7.4 mg/dL (8.8-10.5); CREATININE 10.42 mg/dL (0.60-1.30); GLOMERULAR FILTR. RATE CALC 4 mL/min (>60); GLUCOSE,RANDOM 99 mg/dL (70-110); SODIUM SERUM 126 mmol/L (136-145); UREA NITROGEN, BLOOD 78 mg/dL (7-18)
[2025-04-18 23:16] LABS: TROPONIN I-HIGH SENSITIVITY 779 ng/L (<51)
[2025-04-18] MEDS ORDERED: 0.9% SODIUM CHLORIDE 15 ML NEB SOLUTION NEB ONE (23:20)
[2025-04-18] MEDS: DEXTROSE 50%-WATER 25 GM/50 ML SYRINGE IVP ONE (23:21)
[2025-04-18] MEDS: INSULIN REGULAR, HUMAN 100 UNITS/ML IVP ONE (23:22)
[2025-04-18 23:25] VITALS: PULSE 56; RESP 18; O2SAT 98
[2025-04-18] MEDS: ALBUTEROL SULFATE 2.5 MG/0.5 ML 5 ML NEB SOLUTION NEB ONE (23:25)
[2025-04-18] MEDS: SODIUM ZIRCONIUM CYCLOSILICATE 10 GM POWDER PACKET PO ONE (23:39)
[2025-04-19] VITALS (9 sets, daily range): BP systolic 148–182; BP diastolic 62–89; PULSE 91–126; RESP 15–19; TEMP 97.2–98.8; O2SAT 95–100
[2025-04-19 00:07] LABS: APPEARANCE,URINE HAZY (CLEAR); GLUCOSE, URINE (UA) 150-200 mg/dL (NEGATIVE); LEUKOCYTE ESTERASE ,URINE NEGATIVE (NEGATIVE); NITRATE,URINE NEGATIVE (NEGATIVE); OCCULT BLOOD,URINE MODERATE (NEGATIVE); SPECIFIC GRAVITIY, URINE 1.010 (1.003-1.030)
[2025-04-19 00:12] LABS: SULFOSALICYLIC ACID,URINE 4+ (Negative)
[2025-04-19 00:13] LABS: SQUAMOUS EPITHELIAL CELL,UR Few /LPF (None Seen)
[2025-04-19] MEDS: HEPARIN SODIUM,PORCINE 5,000 UNITS/ML VIAL SQ SCH (00:15)
[2025-04-19] MEDS: ONDANSETRON HCL 4 MG/2 ML VIAL IVP PRN (00:46)
[2025-04-19 01:51] LABS: TROPONIN I-HIGH SENSITIVITY 710 ng/L (<51)
[2025-04-19 07:04] LABS: TROPONIN I-HIGH SENSITIVITY 2006 ng/L (<51)
[2025-04-19] MEDS: DOCUSATE SODIUM 100 MG CAPSULE PO SCH (08:27)
[2025-04-19] MEDS: FAMOTIDINE 20 MG TABLET PO SCH (08:28)
[2025-04-19] MEDS: ASPIRIN 325 MG TABLET PO ONE (08:28)
[2025-04-19] MEDS ORDERED: INSULIN LISPRO 100 UNITS/ML SQ PRN (11:00)
[2025-04-19] MEDS ORDERED: DEXTROSE 50%-WATER 25 GM/50 ML SYRINGE IVP PRN (11:00)
[2025-04-19 11:13] LABS: CALCIUM, TOTAL 7.6 mg/dL (8.8-10.5); CREATININE 11.12 mg/dL (0.60-1.30); GLOMERULAR FILTR. RATE CALC 4.0 mL/min (>60); GLUCOSE,RANDOM 121.0 mg/dL (70-110); SODIUM SERUM 128.0 mmol/L (136-145); UREA NITROGEN, BLOOD 88.0 mg/dL (7-18)
[2025-04-19] MEDS: FUROSEMIDE 40 MG TABLET PO SCH (11:40)
[2025-04-19 17:10] LABS: GLUCOMETER DEV NAME(LOC) 5N.1D; GLUCOSE,POINT OF CARE 204 MG/DL (70-110)
[2025-04-19 17:10] LABS: GLUCOMETER DEV NAME(LOC) 5N.1D; GLUCOSE,POINT OF CARE 113 MG/DL (70-110)
[2025-04-19 17:10] LABS: GLUCOMETER DEV NAME(LOC) 5N.1D; GLUCOSE,POINT OF CARE 177 MG/DL (70-110)
[2025-04-19 17:31] LABS: GLUCOMETER DEV NAME(LOC) 5N.2C; GLUCOSE,POINT OF CARE 127 MG/DL (70-110)
[2025-04-19 21:56] LABS: GLUCOMETER DEV NAME(LOC) 5N.2C; GLUCOSE,POINT OF CARE 123 MG/DL (70-110)
[2025-04-20 00:25] VITALS: BP 142/68
[2025-04-20] MEDS: ACETAMINOPHEN 325 MG TABLET PO PRN (01:47)
== END 2025-04-20 03:25 | disposition left against medical advice (07) | DRG 199 ==
LOC: EMS 22:32 → EDH 23:29 → 5N 04-19 01:50
PROVIDERS: ADMIT Internal Medicine; ATTEND Internal Medicine
PROC: 3E1M39Z Irrigation of Peritoneal Cavity using Dialysate, Percutaneous Approach (ICD-10-PCS; principal; 2025-04-19)
DX: I16.1 Hypertensive emergency (principal); N18.6 End stage renal disease; E87.1 Hypo-osmolality and hyponatremia; D63.1 Anemia in chronic kidney disease; I44.1 Atrioventricular block, second degree; E11.22 Type 2 diabetes mellitus with diabetic chronic kidney disease; E87.5 Hyperkalemia; I12.0 Hypertensive chronic kidney disease with stage 5 chronic kidney disease or end stage renal disease; Z53.29 Procedure and treatment not carried out because of patient's decision for other reasons; R79.89 Other specified abnormal findings of blood chemistry; E78.00 Pure hypercholesterolemia, unspecified; Z99.2 Dependence on renal dialysis; Z83.3 Family history of diabetes mellitus
CPT/HCPCS: 71045; 80048; 81001; 81002; 82962; 83880; 84484; 84703; 85025; 85610; 85730; 90945; 93005; 94644; 94760; 96374; 96375; 99291; G0378; J0360; J1644; J1815; J2405; 36415-L1; 36415-TC

== ENCOUNTER 2025-07-31 19:30 | Inpatient (IN) | payer OTHER ==
[~2025-07-31] VITALS: Ht 142.2 cm; Wt 65.7 kg
[~2025-07-31 19:30] MED LIST changes: +HYDR50TA36 PO; -HYDR50TA37 PO; -SODI10PO3 PO; +SODI5POW3 PO; -TRAV2.5D7 OD; +[UNRECOGNIZED DRUG - CODE] OD
[2025-07-31] MEDS: CALCIUM GLUCONATE 100 MG/ML 10 ML IVP ONE (20:23)
[2025-07-31] MEDS: DEXTROSE 50%-WATER 25 GM/50 ML SYRINGE IVP ONE (20:24)
[2025-07-31] MEDS: ONDANSETRON HCL 4 MG/2 ML VIAL IVP ONE (20:25)
[2025-07-31] MEDS: INSULIN REGULAR, HUMAN 100 UNITS/ML IVP ONE (20:25)
[2025-07-31] MEDS: SODIUM BICARBONATE [ADULT] 8.4% 50 MEQ/50 ML SYRINGE IVP ONE (20:25)
[2025-07-31 20:31] LABS: PLATELET COUNT (AUTO) 330 K/uL (150-450); RED BLOOD CELL COUNT(AUTO) 3.59 MIL/uL (4.00-5.20); RED CELL DISTRIBUTION WIDTH 14.9 % (11.5-14.5); WHITE BLOOD COUNT (AUTO) 9.1 K/uL (4.5-11.0)
[2025-07-31 20:36] LABS: GLUCOMETER DEV NAME(LOC) ER.7; GLUCOSE,POINT OF CARE 102 MG/DL (70-110)
[2025-07-31 20:41] LABS: CALCIUM, TOTAL 7.5 mg/dL (8.8-10.5); CREATININE 11.46 mg/dL (0.60-1.30); GLOMERULAR FILTR. RATE CALC 4 mL/min (>60); GLUCOSE,RANDOM 109 mg/dL (70-110); UREA NITROGEN, BLOOD 72 mg/dL (7-18)
[2025-07-31 20:44] LABS: SODIUM SERUM 121 mmol/L (136-145)
[2025-07-31 20:52] LABS: LACTIC ACID 0.3 mmol/L (0.4-2.0)
[2025-07-31 20:55] LABS: TROPONIN I-HIGH SENSITIVITY 733 ng/L (<51)
[2025-07-31] MEDS: SODIUM ZIRCONIUM CYCLOSILICATE 10 GM POWDER PACKET PO ONE (21:40)
[2025-07-31] MEDS ORDERED: BISACODYL 10 MG RECTAL RECTAL SUPPOSITORY PR PRN (22:15)
[2025-07-31] MEDS ORDERED: MAGNESIUM HYDROXIDE SUSPENSION 30 ML UDCUP PO PRN (22:15)
[2025-07-31] MEDS ORDERED: MORPHINE SULFATE 4 MG/ML SYRINGE IVP PRN (22:15)
[2025-07-31] MEDS ORDERED: ONDANSETRON HCL 4 MG/2 ML VIAL IVP PRN (22:15)
[2025-07-31] MEDS ORDERED: ACETAMINOPHEN 325 MG TABLET PO PRN (22:15)
[2025-08-01] VITALS (8 sets, daily range): BP systolic 151–218; BP diastolic 70–102; PULSE 82–91; RESP 18–19; TEMP 97.3–98.8; O2SAT 95–98
[2025-08-01] MEDS: HEPARIN SODIUM,PORCINE 5,000 UNITS/ML VIAL SQ SCH (00:03)
[2025-08-01 02:02] LABS: APPEARANCE,URINE CLEAR (CLEAR); GLUCOSE, URINE (UA) 150-200 mg/dL (NEGATIVE); LEUKOCYTE ESTERASE ,URINE NEGATIVE (NEGATIVE); NITRATE,URINE NEGATIVE (NEGATIVE); OCCULT BLOOD,URINE SMALL (NEGATIVE); PH,URINE DRUG SCREEN 7.5 (5.0-8.0); SPECIFIC GRAVITIY, URINE 1.009 (1.003-1.030)
[2025-08-01 02:04] LABS: SULFOSALICYLIC ACID,URINE 4+ (Negative)
[2025-08-01 02:05] LABS: SQUAMOUS EPITHELIAL CELL,UR Few /LPF (None Seen)
[2025-08-01 02:09] LABS: AMPHET/METH SCREEN,URINE NEGATIVE (NEGATIVE); BARBITURATE SCREEN, URINE NEGATIVE (NEGATIVE); CANNABINOID SCREEN,URINE NEGATIVE (NEGATIVE); COCAINE SCREEN,URINE NEGATIVE (NEGATIVE); METHADONE SCREEN, URINE NEGATIVE (NEGATIVE)
[2025-08-01 02:13] LABS: ALCOHOL, URINE DRUG SCREEN NEGATIVE (NEGATIVE)
[2025-08-01] MEDS ORDERED: LABETALOL HCL 5 MG/ML 20 ML VIAL IVP PRN (05:30)
[2025-08-01 06:40] LABS: GLUCOMETER DEV NAME(LOC) 5S.2E; GLUCOSE,POINT OF CARE 153 MG/DL (70-110)
[2025-08-01 07:26] LABS: PLATELET COUNT (AUTO) 269 K/uL (150-450); RED BLOOD CELL COUNT(AUTO) 2.97 MIL/uL (4.00-5.20); RED CELL DISTRIBUTION WIDTH 14.7 % (11.5-14.5); WHITE BLOOD COUNT (AUTO) 7.9 K/uL (4.5-11.0)
[2025-08-01 07:33] LABS: CALCIUM, TOTAL 7.5 mg/dL (8.8-10.5); CREATININE 10.37 mg/dL (0.60-1.30); GLOMERULAR FILTR. RATE CALC 4.0 mL/min (>60); GLUCOSE,RANDOM 145.0 mg/dL (70-110); SODIUM SERUM 125.0 mmol/L (136-145); UREA NITROGEN, BLOOD 68.0 mg/dL (7-18)
[2025-08-01] MEDS: DOCUSATE SODIUM 100 MG CAPSULE PO SCH (08:55)
[2025-08-01] MEDS: ASPIRIN 81 MG CHEWABLE TABLET PO SCH (08:56)
[2025-08-01] MEDS: TRAVOPROST-Z 0.004% 2.5 ML OPHTHALMIC SOLUTION OD SCH (08:56)
[2025-08-01] MEDS: PANTOPRAZOLE SODIUM 40 MG DR TABLET PO SCH (08:56)
[2025-08-01 12:17] LABS: TROPONIN I-HIGH SENSITIVITY 546 ng/L (<51)
[2025-08-01] MEDS: EPOETIN ALFA 10,000 UNITS/ML VIAL SQ SCH (14:13)
[2025-08-01] MEDS: FOLIC ACID/VIT B COMPLEX AND C TABLET PO SCH (14:13)
[2025-08-01] MEDS: HYDROCODONE/ACETAMINOPHEN 5-325 MG TABLET PO PRN (19:54)
[2025-08-01] MEDS: ZOLPIDEM TARTRATE 5 MG TABLET PO PRN (19:54)
[2025-08-02 03:37] VITALS: BP 137/75; PULSE 79; RESP 16; TEMP 97.7; O2SAT 97
[2025-08-02 07:04] VITALS: BP 193/91; PULSE 80; RESP 18; TEMP 98; O2SAT 98
[2025-08-02 07:07] LABS: PLATELET COUNT (AUTO) 297 K/uL (150-450); RED BLOOD CELL COUNT(AUTO) 3.28 MIL/uL (4.00-5.20); RED CELL DISTRIBUTION WIDTH 15.0 % (11.5-14.5); WHITE BLOOD COUNT (AUTO) 7.3 K/uL (4.5-11.0)
[2025-08-02 07:20] LABS: CALCIUM, TOTAL 7.7 mg/dL (8.8-10.5); CREATININE 9.12 mg/dL (0.60-1.30); GLOMERULAR FILTR. RATE CALC 5.0 mL/min (>60); GLUCOSE,RANDOM 159.0 mg/dL (70-110); SODIUM SERUM 127.0 mmol/L (136-145); UREA NITROGEN, BLOOD 53.0 mg/dL (7-18)
[2025-08-02] MEDS: SODIUM ZIRCONIUM CYCLOSILICATE 5 GM POWDER PACKET PO SCH (09:00)
[2025-08-02 10:51] VITALS: BP 139/74; PULSE 86; RESP 16; TEMP 98.2; O2SAT 100
[2025-08-02] MEDS ORDERED: SODI5POW3 PO (11:11)
[2025-08-02] MEDS ORDERED: HYDR50TA37 PO (11:11)
[2025-08-02 11:43] VITALS: BP 155/79; PULSE 100; RESP 17; TEMP 98; O2SAT 99
== END 2025-08-02 14:00 | disposition home or self-care (01) | DRG 48 ==
LOC: EMS 19:31 → EDH 22:13 → 5N 23:25
PROVIDERS: ADMIT Internal Medicine; ATTEND Internal Medicine
PROC: 3E1M39Z Irrigation of Peritoneal Cavity using Dialysate, Percutaneous Approach (ICD-10-PCS; principal; 2025-07-31)
PROC: 3E1M39Z Irrigation of Peritoneal Cavity using Dialysate, Percutaneous Approach (ICD-10-PCS; 2025-08-01)
DX: G90.89 Other disorders of autonomic nervous system (principal); I12.0 Hypertensive chronic kidney disease with stage 5 chronic kidney disease or end stage renal disease; N18.6 End stage renal disease; I16.0 Hypertensive urgency; E11.22 Type 2 diabetes mellitus with diabetic chronic kidney disease; D64.9 Anemia, unspecified; E87.1 Hypo-osmolality and hyponatremia; Z99.2 Dependence on renal dialysis; K76.0 Fatty (change of) liver, not elsewhere classified; R55 Syncope and collapse; E87.5 Hyperkalemia; E87.6 Hypokalemia; E87.70 Fluid overload, unspecified; I25.10 Atherosclerotic heart disease of native coronary artery without angina pectoris; I44.30 Unspecified atrioventricular block; E78.00 Pure hypercholesterolemia, unspecified; Z79.82 Long term (current) use of aspirin; Z79.899 Other long term (current) drug therapy; I45.19 Other right bundle-branch block
CPT/HCPCS: 70450; 71045; 80048; 80307; 81001; 81002; 82962; 83605; 83690; 83735; 84484; 84703; 85025; 87040; 87081; 90945; 93005; 96374; 96375; 99291; J0610; J0885; J1644; J1815; J2405; J3490; 36415-L1; 36415-TC

== ENCOUNTER 2025-08-13 15:11 | Inpatient (IN) | payer OTHER ==
[~2025-08-13] VITALS: Ht 162.6 cm; Wt 58.9 kg
[~2025-08-13 15:11] MED LIST changes: -HYDR50TA36 PO; +HYDR50TA37 PO
[2025-08-13] MEDS ORDERED: HYDR50TA36 PO (15:33)
[2025-08-13] MEDS ORDERED: CHOL200059 PO (15:33)
[2025-08-13] MEDS ORDERED: FURO40TA6 PO (15:33)
[2025-08-13] MEDS ORDERED: SEVE800T24 PO (15:33)
[2025-08-13] MEDS ORDERED: AEC81 PO (15:33)
[2025-08-13] MEDS ORDERED: NIFE90TA65 PO (15:33)
[2025-08-13] MEDS ORDERED: SODI650T33 PO (15:33)
[2025-08-13] MEDS ORDERED: INSU100I26 SQ (15:34)
[2025-08-13] MEDS: NITROGLYCERIN 0.4 MG SUBLINGUAL TABLET #25 SL ONE (15:57)
[2025-08-13 16:04] LABS: APPEARANCE,URINE HAZY (CLEAR); GLUCOSE, URINE (UA) 150-200 mg/dL (NEGATIVE); LEUKOCYTE ESTERASE ,URINE NEGATIVE (NEGATIVE); NITRATE,URINE NEGATIVE (NEGATIVE); OCCULT BLOOD,URINE SMALL (NEGATIVE); SPECIFIC GRAVITIY, URINE 1.012 (1.003-1.030)
[2025-08-13] MEDS: ASPIRIN 81 MG CHEWABLE TABLET PO ONE (16:13)
[2025-08-13 16:15] LABS: SQUAMOUS EPITHELIAL CELL,UR Moderate /LPF (None Seen); SULFOSALICYLIC ACID,URINE 3+ (Negative)
[2025-08-13 16:33] LABS: PLATELET COUNT (AUTO) 373 K/uL (150-450); RED BLOOD CELL COUNT(AUTO) 4.18 MIL/uL (4.00-5.20); RED CELL DISTRIBUTION WIDTH 14.3 % (11.5-14.5); WHITE BLOOD COUNT (AUTO) 9.7 K/uL (4.5-11.0)
[2025-08-13 16:42] LABS: CALCIUM, TOTAL 8.3 mg/dL (8.8-10.5); CREATININE 10.41 mg/dL (0.60-1.30); GLOMERULAR FILTR. RATE CALC 4 mL/min (>60); GLUCOSE,RANDOM 91 mg/dL (70-110); SODIUM SERUM 130 mmol/L (136-145); UREA NITROGEN, BLOOD 51 mg/dL (7-18)
[2025-08-13 16:55] LABS: ASPARTATE AMINOTRANSFERASE 25 U/L (15-37); HCG,QUANTITATIVE < 1 mIU/mL (0-6); TOTAL PROTEIN, SERUM 7.1 g/dL (6.4-8.2)
[2025-08-13 16:56] LABS: TROPONIN I-HIGH SENSITIVITY 458 ng/L (<51)
[2025-08-13] MEDS ORDERED: MAGNESIUM HYDROXIDE SUSPENSION 30 ML UDCUP PO PRN (21:00)
[2025-08-13] MEDS ORDERED: BISACODYL 10 MG RECTAL RECTAL SUPPOSITORY PR PRN (21:00)
[2025-08-13] MEDS: DOCUSATE SODIUM 100 MG CAPSULE PO SCH (21:00)
[2025-08-13] MEDS: INSULIN GLARGINE,HUM.REC.ANLOG 100 UNITS/ML SQ SCH (21:41)
[2025-08-13] MEDS: SODIUM BICARBONATE 650 MG TABLET PO SCH (21:41)
[2025-08-13 21:45] VITALS: BP 183/74; PULSE 72; RESP 18; TEMP 98.1; O2SAT 95
[2025-08-13] MEDS: ONDANSETRON HCL 4 MG/2 ML VIAL IVP PRN (22:32)
[2025-08-13 23:36] LABS: GLUCOMETER DEV NAME(LOC) 5N.2C; GLUCOSE,POINT OF CARE 113 MG/DL (70-110)
[2025-08-14 00:15] VITALS: BP 165/45; PULSE 74; RESP 17; TEMP 98; O2SAT 96
[2025-08-14] MEDS: HEPARIN SODIUM,PORCINE 5,000 UNITS/ML VIAL SQ SCH (00:24)
[2025-08-14] MEDS: ZOLPIDEM TARTRATE 5 MG TABLET PO PRN (00:26)
[2025-08-14] MEDS: ACETAMINOPHEN 325 MG TABLET PO PRN (00:34)
[2025-08-14 04:40] VITALS: BP 159/74; PULSE 92; RESP 17; TEMP 98.8; O2SAT 99
[2025-08-14 06:41] LABS: GLUCOMETER DEV NAME(LOC) 5S.2E; GLUCOSE,POINT OF CARE 89 MG/DL (70-110)
[2025-08-14 08:20] VITALS: BP 140/74; PULSE 90; RESP 18; TEMP 98.8; O2SAT 97
[2025-08-14] MEDS: NIFEdipine 90 MG ER TABLET PO SCH (08:52)
[2025-08-14] MEDS: FUROSEMIDE 40 MG TABLET PO SCH (08:52)
[2025-08-14] MEDS: ASPIRIN 81 MG DR TABLET PO SCH (08:52)
[2025-08-14] MEDS: SEVELAMER CARBONATE 800 MG TABLET PO SCH (08:52)
[2025-08-14] MEDS: FUROSEMIDE 80 MG TABLET PO SCH (08:52)
[2025-08-14] MEDS: PANTOPRAZOLE SODIUM 40 MG DR TABLET PO SCH (08:54)
[2025-08-14 12:06] VITALS: BP 103/54; PULSE 89; RESP 18; TEMP 98; O2SAT 99
[2025-08-14 12:56] LABS: GLUCOMETER DEV NAME(LOC) 5N.2C; GLUCOSE,POINT OF CARE 106 MG/DL (70-110)
[2025-08-14 16:48] LABS: TROPONIN I-HIGH SENSITIVITY 1204 ng/L (<51)
[2025-08-14 17:49] LABS: PLATELET COUNT (AUTO) 361 K/uL (150-450); RED BLOOD CELL COUNT(AUTO) 3.76 MIL/uL (4.00-5.20); RED CELL DISTRIBUTION WIDTH 14.4 % (11.5-14.5); WHITE BLOOD COUNT (AUTO) 7.8 K/uL (4.5-11.0)
[2025-08-14] MEDS: HEPARIN SODIUM 25000 UNITS/D5W 250 ML IV PRN (18:30)
[2025-08-14] MEDS: HEPARIN SODIUM,PORCINE 5,000 UNITS/ML VIAL IVP ONE (18:31)
[2025-08-14 19:21] LABS: GLUCOMETER DEV NAME(LOC) 5S.2E; GLUCOSE,POINT OF CARE 114 MG/DL (70-110)
[2025-08-15] MEDS: HEPARIN SODIUM,PORCINE 5,000 UNITS/ML VIAL IVP PRN ×2 (02:42→11:36)
[2025-08-15 04:26] LABS: GLUCOMETER DEV NAME(LOC) 5S.2E; GLUCOSE,POINT OF CARE 115 MG/DL (70-110)
[2025-08-15 04:45] VITALS: BP 199/87; PULSE 82; RESP 20; TEMP 98.2; O2SAT 97
[2025-08-15 06:14] LABS: PLATELET COUNT (AUTO) 298 K/uL (150-450); RED BLOOD CELL COUNT(AUTO) 3.32 MIL/uL (4.00-5.20); RED CELL DISTRIBUTION WIDTH 14.0 % (11.5-14.5); WHITE BLOOD COUNT (AUTO) 7.4 K/uL (4.5-11.0)
[2025-08-15 06:29] LABS: CALCIUM, TOTAL 7.6 mg/dL (8.8-10.5); CREATININE 10.65 mg/dL (0.60-1.30); GLOMERULAR FILTR. RATE CALC 4.0 mL/min (>60); GLUCOSE,RANDOM 120.0 mg/dL (70-110); SODIUM SERUM 125.0 mmol/L (136-145); UREA NITROGEN, BLOOD 56.0 mg/dL (7-18)
[2025-08-15 08:10] LABS: GLUCOMETER DEV NAME(LOC) 5N.2C; GLUCOSE,POINT OF CARE 121 MG/DL (70-110)
[2025-08-15 08:33] VITALS: BP 133/63; PULSE 68; RESP 19; TEMP 98.1; O2SAT 99
[2025-08-15 09:30] LABS: TROPONIN I-HIGH SENSITIVITY 1003 ng/L (<51)
[2025-08-15 11:26] LABS: GLUCOMETER DEV NAME(LOC) 5N.2C; GLUCOSE,POINT OF CARE 106 MG/DL (70-110)
[2025-08-15 11:46] VITALS: BP 118/70; PULSE 75; RESP 19; TEMP 98.1; O2SAT 100
[2025-08-15] MEDS: FOLIC ACID/VIT B COMPLEX AND C TABLET PO SCH (12:31)
[2025-08-15] MEDS: GENTAMICIN SULFATE 0.3% OPHTHALMIC SOLUTION 5 ML TP SCH (12:31)
[2025-08-15 15:41] VITALS: BP 143/75; PULSE 75; RESP 18; TEMP 98.2; O2SAT 100
[2025-08-15] MEDS: POTASSIUM CHLORIDE 20 MEQ ER TABLET PO SCH (17:13)
[2025-08-15] MEDS: HYDROCODONE/ACETAMINOPHEN 5-325 MG TABLET PO PRN (18:56)
[2025-08-15 19:22] VITALS: BP 131/103; PULSE 71; RESP 18; TEMP 97.9; O2SAT 100
[2025-08-15 19:56] LABS: GLUCOMETER DEV NAME(LOC) 5N.2C; GLUCOSE,POINT OF CARE 105 MG/DL (70-110)
[2025-08-15 20:47] LABS: TROPONIN I-HIGH SENSITIVITY 901 ng/L (<51)
[2025-08-16] VITALS (8 sets, daily range): BP systolic 150–179; BP diastolic 72–95; PULSE 82–102; RESP 15–20; TEMP 98.2–98.6; O2SAT 98–100
[2025-08-16 06:10] LABS: CALCIUM, TOTAL 7.6 mg/dL (8.8-10.5); CREATININE 9.52 mg/dL (0.60-1.30); GLOMERULAR FILTR. RATE CALC 5.0 mL/min (>60); GLUCOSE,RANDOM 133.0 mg/dL (70-110); SODIUM SERUM 128.0 mmol/L (136-145); UREA NITROGEN, BLOOD 49.0 mg/dL (7-18)
[2025-08-16 18:15] LABS: GLUCOMETER DEV NAME(LOC) ICUN.7; GLUCOSE,POINT OF CARE 87 MG/DL (70-110)
[2025-08-16 21:06] LABS: GLUCOMETER DEV NAME(LOC) ICU.S7; GLUCOSE,POINT OF CARE 147 MG/DL (70-110)
[2025-08-17] VITALS (19 sets, daily range): BP systolic 126–179; BP diastolic 69–105; PULSE 70–109; RESP 10–16; TEMP 98.2–98.7; O2SAT 93–99
[2025-08-17 05:52] LABS: PLATELET COUNT (AUTO) 285 K/uL (150-450); RED BLOOD CELL COUNT(AUTO) 3.38 MIL/uL (4.00-5.20); RED CELL DISTRIBUTION WIDTH 14.3 % (11.5-14.5); WHITE BLOOD COUNT (AUTO) 6.8 K/uL (4.5-11.0)
[2025-08-17 06:02] LABS: CALCIUM, TOTAL 7.7 mg/dL (8.8-10.5); CREATININE 9.55 mg/dL (0.60-1.30); GLOMERULAR FILTR. RATE CALC 5.0 mL/min (>60); GLUCOSE,RANDOM 95.0 mg/dL (70-110); SODIUM SERUM 131.0 mmol/L (136-145); UREA NITROGEN, BLOOD 46.0 mg/dL (7-18)
[2025-08-17 07:10] LABS: GLUCOMETER DEV NAME(LOC) ICU.S7; GLUCOSE,POINT OF CARE 69 MG/DL (70-110)
[2025-08-17 10:05] LABS: GLUCOMETER DEV NAME(LOC) ICUN.7; GLUCOSE,POINT OF CARE 94 MG/DL (70-110)
[2025-08-17] MEDS: MORPHINE SULFATE 4 MG/ML SYRINGE IVP PRN (10:21)
[2025-08-17] MEDS ORDERED: HEPARIN SODIUM 1000 UNITS/NS 1,000 ML ONE (16:54)
[2025-08-17] MEDS ORDERED: LIDOCAINE/PF 1% 30 ML VIAL ONE (16:54)
[2025-08-17] MEDS ORDERED: IOHEXOL 300 MG/ML 50 ML VIAL ONE (16:54)
[2025-08-17] MEDS ORDERED: SODIUM BICARBONATE 50 MEQ/50 ML VIAL ONE (16:54)
[2025-08-17] MEDS ORDERED: MIDAZOLAM HCL 2 MG/2 ML VIAL ONE (17:10)
[2025-08-17] MEDS ORDERED: FentaNYL CITRATE PF 100 MCG/2 ML VIAL ONE (17:10)
[2025-08-17 17:35] LABS: GLUCOMETER DEV NAME(LOC) ICU.S7; GLUCOSE,POINT OF CARE 90 MG/DL (70-110)
[2025-08-17] MEDS: LIDOCAINE 1% 30 ML/SOD BICARB 8.4% 4 ML SQ ONE (17:56)
[2025-08-17] MEDS: MIDAZOLAM HCL 2 MG/2 ML VIAL IVP ONE (17:56)
[2025-08-17] MEDS: FentaNYL CITRATE PF 100 MCG/2 ML VIAL IVP ONE (17:57)
[2025-08-17] MEDS: HEPARIN SODIUM 1000 UNITS/NS 1,000 ML IARTER ONE (17:57)
[2025-08-17] MEDS: IOHEXOL 300 MG/ML 100 ML VIAL ICOR ONE (17:59)
[2025-08-17] MEDS: IOHEXOL 300 MG/ML 50 ML VIAL IARTER ONE (18:04)
[2025-08-17 20:35] LABS: GLUCOMETER DEV NAME(LOC) ICUN.7; GLUCOSE,POINT OF CARE 123 MG/DL (70-110)
[2025-08-18] VITALS: BP 161/84; PULSE 81; RESP 15; TEMP 97.7; O2SAT 95
[2025-08-18 04:00] VITALS: BP 174/91; PULSE 74; RESP 15; TEMP 97.9; O2SAT 95
[2025-08-18 05:54] LABS: PLATELET COUNT (AUTO) 289 K/uL (150-450); RED BLOOD CELL COUNT(AUTO) 3.30 MIL/uL (4.00-5.20); RED CELL DISTRIBUTION WIDTH 14.5 % (11.5-14.5); WHITE BLOOD COUNT (AUTO) 7.7 K/uL (4.5-11.0)
[2025-08-18 06:04] LABS: CALCIUM, TOTAL 8.2 mg/dL (8.8-10.5); CREATININE 10.34 mg/dL (0.60-1.30); GLOMERULAR FILTR. RATE CALC 4.0 mL/min (>60); GLUCOSE,RANDOM 77.0 mg/dL (70-110); SODIUM SERUM 132.0 mmol/L (136-145); UREA NITROGEN, BLOOD 48.0 mg/dL (7-18)
[2025-08-18 06:08] LABS: PHOSPHORUS 8.4 mg/dL (2.5-4.9)
[2025-08-18 08:00] VITALS: BP 170/86; PULSE 82; RESP 12; TEMP 99.3; O2SAT 96
[2025-08-18 10:00] LABS: GLUCOMETER DEV NAME(LOC) ICUN.7; GLUCOSE,POINT OF CARE 86 MG/DL (70-110)
[2025-08-18 11:30] VITALS: BP 156/76; PULSE 67; RESP 16; O2SAT 97
[2025-08-18] MEDS ORDERED: SODI5POW3 PO (14:37)
[2025-08-18 15:00] LABS: GLUCOMETER DEV NAME(LOC) ICU.S7; GLUCOSE,POINT OF CARE 107 MG/DL (70-110)
[2025-08-18 17:41] VITALS: BP 152/76; PULSE 70; RESP 16; TEMP 98; O2SAT 96
[2025-08-24] MEDS ORDERED: FURO40TA6 PO (13:16)
[2025-08-24] MEDS ORDERED: AMLO-258 PO (13:17)
[2025-08-24] MEDS ORDERED: CARV12 PO (13:18)
[2025-08-24] MEDS ORDERED: LOSA-382 PO (13:18)
== END 2025-08-18 18:15 | disposition home or self-care (01) | DRG 171 ==
LOC: EMS 15:11 → EDH 18:53 → 5S 21:12 → EDH 08-15 22:17 → ICU 08-16 08:27 → 5N 08-18 12:05
PROVIDERS: ADMIT Internal Medicine; ATTEND Internal Medicine
PROC: 3E1M39Z Irrigation of Peritoneal Cavity using Dialysate, Percutaneous Approach (ICD-10-PCS; 2025-08-14)
PROC: 3E1M39Z Irrigation of Peritoneal Cavity using Dialysate, Percutaneous Approach (ICD-10-PCS; 2025-08-15)
PROC: 3E1M39Z Irrigation of Peritoneal Cavity using Dialysate, Percutaneous Approach (ICD-10-PCS; 2025-08-16)
PROC: 02HK3NZ Insertion of Intracardiac Pacemaker into Right Ventricle, Percutaneous Approach (ICD-10-PCS; principal; 2025-08-17)
PROC: 3E1M39Z Irrigation of Peritoneal Cavity using Dialysate, Percutaneous Approach (ICD-10-PCS; 2025-08-17)
DX: I44.2 Atrioventricular block, complete (principal); I13.2 Hypertensive heart and chronic kidney disease with heart failure and with stage 5 chronic kidney disease, or end stage renal disease; K66.1 Hemoperitoneum; N18.6 End stage renal disease; Z99.2 Dependence on renal dialysis; D63.1 Anemia in chronic kidney disease; E11.22 Type 2 diabetes mellitus with diabetic chronic kidney disease; K76.0 Fatty (change of) liver, not elsewhere classified; I24.9 Acute ischemic heart disease, unspecified; E87.1 Hypo-osmolality and hyponatremia; I50.32 Chronic diastolic (congestive) heart failure; I16.0 Hypertensive urgency; I49.8 Other specified cardiac arrhythmias; E87.6 Hypokalemia; I25.10 Atherosclerotic heart disease of native coronary artery without angina pectoris; E78.00 Pure hypercholesterolemia, unspecified; E87.5 Hyperkalemia; I45.10 Unspecified right bundle-branch block; Z86.73 Personal history of transient ischemic attack (TIA), and cerebral infarction without residual deficits; Z87.59 Personal history of other complications of pregnancy, childbirth and the puerperium; Z95.0 Presence of cardiac pacemaker; Z79.899 Other long term (current) drug therapy
CPT/HCPCS: 71045; 71046; 76000; 76705; 80048; 80076; 81001; 81002; 82962; 83735; 83880; 84100; 84132; 84484; 84702; 85025; 85610; 85730; 87077; 87081; 87086; 90945; 93005; 93306; 96374; 96376; 97116; 97162; 99291; G0378; J0360; J1200; J1644; J1815; J2250; J2270; J2405; J3010; J3490; Q9967; 36415-L1; 36415-TC